=== PATIENT | female | born 1990 | race Caucasian/White ===

== ENCOUNTER 2024-07-25 09:08 | Outpatient (CLI) | payer MEDICAID, SELFPAY ==
--- NOTE | 2024-07-25 09:15 | CRLHL7_ITS ---
For Patients: As a result of the Cures Act, medical imaging exams and procedure reports are released immediately into your electronic medical record. You may view this report before your referring provider. If you have questions, please contact your health care provider. INDICATION: First trimester scan, establish dates. COMPARISON: None. TECHNIQUE: Real-time maurer-scale imaging of the pelvis was performed. FINDINGS: Sonographic imaging demonstrates a single living intrauterine gestation. The embryo demonstrates a regular cardiac rate measuring 165 beats per minute. The embryo`s crown-rump length measurement of 5.8 cm corresponds to a gestational age of 12 weeks 2 days with a sonographic due date of 02/04/2025. Yolk sac not visualized. There are no gross abnormalities noted within the embryo at this early state of development. The gestational sac has a normal appearance. There is no evidence of a perigestational hemorrhage. The amount of fluid within the sac appears appropriate for gestational age. The cervix is closed. The myometrium appears normal. Normal left ovary. Nonvisualization right ovary. There are no suspicious fluid collections noted in the cul-de-sac. IMPRESSION: Single living intrauterine with sonographic gestational age 12 weeks 2 days and sonographic due date of 02/04/2025. Dictated by Efe Inman MD @ 07/25/2024 10:53:54 AM (Electronically Signed)
== END 2024-07-25 09:09 | disposition home or self-care (01) ==
LOC: US 09:09
PROVIDERS: PCP Physician Assistant Medical; Visit Provider Physician Assistant
DX: Z34.91 Encounter for supervision of normal pregnancy, unspecified, first trimester (principal); Z3A.12 12 weeks gestation of pregnancy
CPT/HCPCS: 76817

== ENCOUNTER 2024-07-25 10:33 | Outpatient (CLI) | payer MEDICAID, SELFPAY ==
[2024-07-25 15:19] LABS: Chlamydia DNA Amplified* NOT DETECTED (No Detected); GC DNA Amplified* NOT DETECTED (No Detected)
[2024-07-26 22:06] LABS: HPV Source Cervix; HPV, High Risk by TMA Not Detected
== END 2024-07-25 10:34 | disposition home or self-care (01) ==
PROVIDERS: PCP Physician Assistant Medical; Visit Provider Physician Assistant
DX: Z34.91 Encounter for supervision of normal pregnancy, unspecified, first trimester (principal); Z12.4 Encounter for screening for malignant neoplasm of cervix; Z3A.12 12 weeks gestation of pregnancy
CPT/HCPCS: 80306; 82565; 82570; 83036; 84156; 84450; 84460; 84520; 85025; 86592; 86703; 86704; 86706; 86762; 86787; 86803; 86850; 86900; 86901; 87086; 87340; 87491; 87591; 87624; 87625; 88141; 88142

== ENCOUNTER 2024-07-28 09:06 | Outpatient (CLI) | payer MEDICAID, SELFPAY | END 2024-07-28 09:07 | disposition home or self-care (01) | LOC: NFLDREF 08-01 13:29 | PROVIDERS: PCP Physician Assistant Medical; Referring Provider Physician Assistant Medical; Visit Provider Physician Assistant | DX: R10.2 Pelvic and perineal pain (principal); M54.50 Low back pain, unspecified | CPT/HCPCS: 82570; 84156 ==

== ENCOUNTER 2024-09-20 10:56 | Outpatient (CLI) | payer MEDICAID, SELFPAY | END 2024-09-20 10:57 | disposition home or self-care (01) | PROVIDERS: PCP Physician Assistant Medical; Visit Provider Obstetrics & Gynecology | DX: O09.522 Supervision of elderly multigravida, second trimester (principal); Z3A.20 20 weeks gestation of pregnancy | CPT/HCPCS: 76811 ==

== ENCOUNTER 2024-12-06 09:17 | Outpatient (CLI) | payer MEDICAID, SELFPAY ==
--- NOTE | 2024-12-06 09:15 | CRLHL7_ITS ---
For Patients: As a result of the Century Cures Act, medical imaging exams and procedure reports are released immediately into your electronic medical record. You may view this report before your referring provider. If you have questions, please contact your health care provider. INDICATION: Evaluate growth, Maternal tobacco use COMPARISON: 09/20/2024 TECHNIQUE: Guo-scale and color Doppler of the gravid uterus and fetus from a transabdominal approach. FINDINGS: Provided gestational age: 31 weeks 3 days Single intrauterine gestation in a cephalic presentation. heart rate is 159 bpm. There is some assessment of the anatomy on this examination. Normally ossified nasal bone with normal profile view. Normal cavum septum pellucidum. Normal cerebral ventricles. The nose and upper lip are normal. Normal diaphragmatic contours without a hernia. Normal situs. Normal appearance of the four-chamber heart. Left and right ventricular outflow tracts are normal. Normal appearance of the aortic arch. Normal appearance of the pulmonary artery bifurcation and ductus arteriosus. There is an additional mildly prominent vessel along the left upper mediastinum. There is a three-vessel umbilical cord. No pleural effusion, pericardial effusion, ascites, or skin edema. Biparietal diameter: 7.8 cm Head circumference: 29 cm Abdominal circumference: 27.1 cm Femur length: 5.8 cm HC/AC: 1.10, normal for gestational age The composite ultrasound estimated gestational age is 31 weeks 4 days. The estimated weight is 1711 grams, or 3 pounds 12 ounces. This corresponds to the 30th percentile for gestational age. Amniotic fluid volume is normal. Single deepest vertical pocket is 5.6 cm The placenta is anterior. No previa. No periplacental hemorrhage. IMPRESSION: 1. Single intrauterine gestation without complication seen. 2. Growth is concordant with dates. Estimated weight is at the 30th percentile for gestational age. 3. Prominent vessel in the left upper chest without a major cardiovascular anomaly seen. May be a prominent pulmonary vein or left-sided SVC. Consider echocardiogram. Dictated by Dloly Andrade MD @ 12/07/2024 8:00:17 AM (Electronically Signed)
== END 2024-12-06 09:18 | disposition home or self-care (01) ==
LOC: US 09:18
PROVIDERS: PCP Physician Assistant Medical; Visit Provider Obstetrics & Gynecology
DX: O99.333 Smoking (tobacco) complicating pregnancy, third trimester (principal); Z72.0 Tobacco use; Z3A.31 31 weeks gestation of pregnancy
CPT/HCPCS: 76816; 82607; 86592

== ENCOUNTER 2024-12-06 10:52 | Outpatient (CLI) | payer MEDICAID, SELFPAY | END 2024-12-06 10:53 | disposition home or self-care (01) | PROVIDERS: PCP Physician Assistant Medical; Referring Provider Physician Assistant Medical; Visit Provider Obstetrics & Gynecology | DX: Z34.93 Encounter for supervision of normal pregnancy, unspecified, third trimester (principal); F10.11 Alcohol abuse, in remission; Z3A.31 31 weeks gestation of pregnancy | CPT/HCPCS: 82607; 86592 ==

== ENCOUNTER 2024-12-29 11:10 | Outpatient (CLI) | payer MEDICAID, SELFPAY ==
--- NOTE | 2024-12-29 11:15 | CRLHL7_ITS ---
For Patients: As a result of the Cures Act, medical imaging exams and procedure reports are released immediately into your electronic medical record. You may view this report before your referring provider. If you have questions, please contact your health care provider. OB ULTRASOUND FOLLOW-UP GROWTH JULIET by US: 02/04/2025. GA: 34 w, 5 d. Single. Comparison: 12/06/2024, 09/20/2024. INDICATION: Tobacco use. TECHNIQUE: Real time maurer scale imaging of the fetus was performed. Transabdominal. CERVIX: Not visualized. POSITIONING: Vertex. AMNIOTIC FLUID: 7.8 cm. SDP (N: greater than 2 x 1 cm) PLACENTA: Technique: Transabdominal. PLACENTA POSITION: Anterior. DOPPLER: heart rate: 130 bpm. BIOMETRY: BPD: 8.2 cm. 32 w, 6 d, 9 percent. HC: 31.2 cm. 35 w, 0 d, 22 percent. AC: 30.7 cm. 34 w, 5 d, 55 percent. FL: 6.1 cm. 31 w, 3 d, < 3 percent. FL/AC ratio: 19.69 percent. HC/AC ratio: 1.02. EFW: 2244 g. Weight: 4 lbs, 15 oz. age by this US: 33 w, 4 d. JULIET by this US: 02/12/2025. Percentile by JULIET: 19 percent. IMPRESSION: 1. Sonographic gestational age 33 weeks 4 days and sonographic due date 02/12/2025. Sonographic age is 8 days behind the clinical age. 2. Estimated weight 19th percentile. Abdominal circumference 55th percentile. Femur length less than 3rd percentile. Efe Inman M.D. Diagnostic Radiologist [email or web address] SP/Dictated by: Efe Inman MD @ 12/29/2024 5:39:00 PM (Electronically Signed)
== END 2024-12-29 11:11 | disposition home or self-care (01) ==
LOC: US 11:11
PROVIDERS: PCP Physician Assistant Medical; Visit Provider Obstetrics & Gynecology
DX: O36.5930 Maternal care for other known or suspected poor fetal growth, third trimester, not applicable or unspecified (principal); Z72.0 Tobacco use; Z3A.33 33 weeks gestation of pregnancy
CPT/HCPCS: 76816

== ENCOUNTER 2025-01-09 11:42 | Outpatient (CLI) | payer MEDICAID, SELFPAY ==
[2025-01-10 11:33] LABS: Strep B DNA Probe POSITIVE (Negative)
[2025-01-10 12:02] LABS: Strep B Susceptibility Needed? No
== END 2025-01-09 11:43 | disposition home or self-care (01) ==
PROVIDERS: PCP Physician Assistant Medical; Visit Provider Obstetrics & Gynecology
DX: Z34.83 Encounter for supervision of other normal pregnancy, third trimester (principal)
CPT/HCPCS: 87081; 87653

== ENCOUNTER 2025-02-06 07:29 | Inpatient (IN) | payer MEDICAID, SELFPAY ==
[2025-02-06] VITALS (63 sets, daily range): BP systolic 95–148; BP diastolic 53–90; PULSE 52–102; RESP 16–18; TEMP 36.3–37; O2SAT 92–100; BMI 25.5
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
[2025-02-06] MEDS: AMPICILLIN 2 GM in 0.9 % SODIUM CHLORIDE Mini-bag 100 ML IVPB (08:33)
[2025-02-06] MEDS: LACTATED RINGERS 1000 ML 1,000 ML 125 ML IV ×3 (08:33→18:10)
[2025-02-06] MEDS: OXYTOCIN 30 unit/500 ML in NS 30 UNIT/500 ML BAG IVPB (08:34)
[2025-02-06 09:14] LABS: Amphetamine Screen Urine Negative (Negative); Barbiturate Screen Urine Negative (Negative); Benzodiazepines Screen Urine Negative (Negative); Cannabinoid Screen Urine POSITIVE (Negative); Cocaine Screen Urine Negative (Negative); Methadone Screen Urine Negative (Negative); Methamphetamines Screen Urine Negative (Negative); Opiate Screen Urine Negative (Negative); Oxycodone Screen Urine Negative (Negative); Phencyclidine Screen Urine Negative (Negative); Tricyclic Antidepressant Urine Negative (Negative)
[2025-02-06 09:16] LABS: Basophils Percent Auto 0.2 % (0.0-3.0); Hematocrit 37.4 % (33.0-51.0); Hemoglobin* 12.5 gm/dL (12.0-16.0); Immature Granulocytes Pct Auto 0.6 %; Lymphocytes Percent Auto 14.7 % (20-44); Mean Corpuscular HGB Conc 33 gm/dL (32-36); Mean Corpuscular Hemoglobin 35 pg (26-34); Mean Corpuscular Volume 105 fL (80-100); Monocytes Percent Auto 6.7 % (0.0-11.0); Neutrophils Percent Auto 76.8 % (42.0-72.0); Platelet Count* 195 K/uL (140-440); RDW Coefficient of Variation % 12.8 % (11.5-15.5); Red Blood Count 3.55 m/uL (4.00-5.20); White Blood Count* 14.38 K/uL (4.50-11.00)
[2025-02-06 09:21] LABS: Total Protein Urine 13 mg/dL
[2025-02-06 09:21] LABS: Slide Review Reflex No
[2025-02-06 09:22] LABS: Creatinine Urine 36.9 mg/dL; Protein Creatinine Ratio Urine 0.35 (0-0.19)
[2025-02-06 09:22] LABS: Alanine Aminotransferase* 17 U/L (4-35); Aspartate Amino Transferase* 26 U/L (12-35); Blood Urea Nitrogen* 12 mg/dL (5-24); Creatinine* 0.6 mg/dL (0.5-1.5); Est. Creatinine Clearance* 136.77; Estimated Glomerular Filt Rate 120 ml/min
[2025-02-06] MEDS: AMPICILLIN 1 GM in 0.9 % SODIUM CHLORIDE Mini-bag 100 ML IVPB (13:44)
--- NOTE | 2025-02-06 13:50 | PM.OBPNL ---
Subjective Time Seen by Provider: 13:45 Date Seen: 02/06/25 Narrative: Romina is a 34-year-old G P 1 woman at 40 weeks, 2 days gestation here for elective induction of labor. This is a trial of labor after . Problem list also notable for: Smoker of 1/2 pack a day Possible aneurysm of the ductus arteriosus Marijuana use GBS positive Thus far, she has had Pitocin for induction of labor. She has had 1 dose of ampicillin greater than 4 hours ago. She is feeling strong contractions at this time. Pitocin is currently at 7 milliunits a minute. Objective Exam: General: Crying through contractions Sterile vaginal exam: 4 cm, 90%, 0 station. AROM for clear fluid. Vital Signs: Last Vital Signs Temp 97.8 F 02/06/25 11:52 Pulse 63 02/06/25 11:50 BP 127/86 02/06/25 11:50 Pulse Ox 98 02/06/25 07:59 Comments: tracing: Baseline 120, accelerations present, 1 variable deceleration, moderate variability. Contractions approximately every 2 minutes Contractions Pitocin Rate (mU/min): 7 Assessment Assessment: early labor Amniotic Membrane Status: AROM Status: Category ll (1 isolated variable deceleration) Tracing Comments: Category 2, overall reassuring GBS positive, has received a dose of IV ampicillin greater than 4 hours ago Labor Progress: Progress through early labor Marked increase in intensity of contractions Maternal Status: Preeclampsia without severe features by her admission blood pressure; 1 previously elevated blood pressure on 01/25/2025 Normal HELLP labs. Protein to creatinine ratio 0.35. All blood pressure since initial 1 have been normal. Plan Plan: Epidural as desired Continue pitocin for induction Continuous monitoring Continue ampicillin Q 4 h
[2025-02-06] MEDS: ROPIVACAINE 0.2% 100 ml 100 ML 12 MG EPIDURAL (14:14)
[2025-02-06] MEDS: BUPIVACAINE 0.25% PF 10 ML 10 ML ML EPIDURAL (14:14)
[2025-02-06] MEDS: PHENYLEPHRINE 100 MCG/ML SYRINGE IVP (14:26)
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
--- NOTE | 2025-02-06 14:42 | PM.OBPNL ---
Subjective Time Seen by Provider: 14:45 Date Seen: 02/06/25 Narrative: Romina is a 34-year-old G P 1 woman at 40 weeks, 2 days gestation here for elective induction of labor. This is a trial of labor after . Problem list also notable for: Smoker of 1/2 pack a day Possible aneurysm of the ductus arteriosus Marijuana use GBS positive Thus far, she has had Pitocin for induction of labor. She has had 1 dose of ampicillin greater than 4 hours ago. I was called to bedside with report of decelerations. She just received an epidural. She was given phenylephrine, but tracing did not respond despite mild hypertension. Pitocin was stopped. She was repositioned on her left and right sides with no impact. Objective Exam: Gen: on hands and knees in bed Vital Signs: Last Vital Signs Temp 97.8 F 02/06/25 11:52 Pulse 55 L 02/06/25 14:40 BP 119/58 L 02/06/25 14:40 Pulse Ox 98 02/06/25 14:41 Comments: Baseline prior to epidural was around 135. At 2:19 p.m., deceleration into the 80s was noted, slow return to baseline over a minute and a half. Recovery to 120, followed by another deceleration in to low of 80s lasting 3.5 minutes in total. Recovery for another minute, followed by another deceleration with chantel in the 80s lasting 4 minutes. Thereafter, recovery to 120 with moderate variability, followed by an increase in baseline to 135 at 2:40 p.m. Contractions Q 2 minutes. Contractions Pitocin Rate (mU/min): 0 Assessment Assessment: early labor Amniotic Membrane Status: AROM Status: Category ll (1 isolated variable deceleration) Tracing Comments: Category 2. Baseline now normalized after recurrent decelerations, but now with diminished variability. GBS positive, receiving IV ampicillin Labor Progress: Progress through early labor Maternal Status: Preeclampsia without severe features by her admission blood pressure; 1 previously elevated blood pressure on 01/25/2025 Normal HELLP labs. Protein to creatinine ratio 0.35. All blood pressure since initial 1 have been normal. Plan Plan: will begin to experiment with position changes again. Hold pitocin at this time. Continuous monitoring. Will monitor for return of moderate variability in next 20 minutes. Continue ampicillin Q 4 h
[2025-02-06] MEDS: CALCIUM CARBONATE 500 MG CHEW PO (16:25)
[2025-02-06] MEDS: TERBUTALINE 1 MG/ML INJ 0.25 MG SUBCUT (16:54)
[2025-02-06] MEDS: LACTATED RINGERS 1000 ML 1,000 ML 925 ML IV (17:00)
[2025-02-06] MEDS: AZITHROMYCIN 500 MG in 0.9 % SODIUM CHLORIDE 250 ml 250 ML 255 MG IVPB (17:11)
--- NOTE | 2025-02-06 17:14 | PM.OBPNL ---
Subjective Time Seen by Provider: 17:00 Date Seen: 02/06/25 Narrative: Romina is a 34-year-old G2 P 1 woman at 40 weeks, 2 days gestation here for elective induction of labor. This is a trial of labor after . Problem list also notable for: Smoker of 1/2 pack a day Possible aneurysm of the ductus arteriosus Marijuana use GBS positive Thus far, she has had Pitocin for induction of labor. She has had 2 doses of ampicillin. Throughout the afternoon, she has had intermittent but prolonged decelerations; one episode of this was described in my most recent note. Since 1500, while baseline has generally been 140 with moderate variability, there have been several current as of prolonged decelerations with return to baseline thereafter. These have generally occurred without the use of Pitocin. The last time Pitocin was attempted, this was followed by of prolonged deceleration. At the writing this note, baseline is now 155-160 and moderate variability is again noted. Patient was given terbutaline given nonreassuring status. At this moment, given the recurrence of decelerations, I have recommended repeat delivery for nonreassuring status in the setting TOLAC. Patient understands the recommendation and agrees with the plan. We discussed risks of procedure, including bleeding/hemorrhage, infection, damage to internal organs, scarring, risk of thromboembolism. Consent form was reviewed with and signed by patient. Is of mycin and cefazolin for preoperative prophylaxis. Objective Exam: Gen: Lying in bed Vital Signs: Last Vital Signs Temp 98.6 F 02/06/25 16:53 Pulse 86 02/06/25 17:07 BP 95/53 L 02/06/25 17:07 Pulse Ox 100 02/06/25 17:11 Contractions Pitocin Rate (mU/min): 0 Assessment Assessment: early labor Amniotic Membrane Status: AROM Status: Category ll (1 isolated variable deceleration) Tracing Comments: Category 2. Nonreassuring. GBS positive, receiving IV ampicillin Labor Progress: Early labor Maternal Status: Preeclampsia without severe features by her admission blood pressure; 1 previously elevated blood pressure on 01/25/2025 Normal HELLP labs. Protein to creatinine ratio 0.35. All blood pressure since initial 1 have been normal. Plan Plan: delivery, as described above
[2025-02-06] MEDS: CEFAZOLIN 1 GM inj 2 GM IVP (17:30)
[2025-02-06] MEDS: KETOROLAC 30 MG/ML inj IVP (18:16)
--- NOTE | 2025-02-06 18:29 | P.OBPRC_ITS ---
Procedure Date of procedure: 02/06/25 Pre-op diagnosis: 40 2/7 weeks' gestation Previous section Nonreassuring status Post-op diagnosis: same Procedure Done: Global Will [facility] bill your pro fee for this procedure?: Yes Blood Loss Measurement Type: QBL (529) Bakri Used: No IV fluids (mL): 1,000 Urine Output (mL): 20 Surgeon: Elda Quiroz MD Anesthesia Type: Epidural Findings: 1. Male infant, cephalic 0 P presentation, Apgars of 4, 8, and 9, weight pending at the time of this dictation. 2. Scarring of the subcutaneous tissue and along the bladder reflection to the uterus. Otherwise normal appearance of bilateral tubes and ovaries. Procedure Name: Repeat low-transverse delivery Procedure Description: Patient was taken to the operating room with IV running. She received azithromycin and cefazolin in preoperative prophylaxis. Epidural anesthesia had previously been administered. Abrams catheter was inserted. She was prepped and draped in the usual sterile fashion. Anesthesia was tested and found to be adequate. A low-transverse skin incision was made with a scalpel and carried through to the underlying layer of fascia with the scalpel. The subcutaneous fat was dissected off the underlying fascia with Bovie. The fascia was nicked in the midline with a scalpel, and this incision was extended laterally with scissors. The fascia was dissected off the underlying rectus muscles sharply. The rectus muscles were in the midline. Peritoneum was identified and entered bluntly. Bovie was used to widen this opening laterally. Prosper O retractor was inserted and tightened down, providing excellent visualization of the lower uterine segment. The bladder reflection was found to be advanced along the lower uterine segment. A bladder flap was created with a combination of sharp and blunt dissection. Low-transverse uterine incision was made with a scalpel. Incision was widened bluntly. The 's head was grasped through the hysterotomy and delivered with the help of fundal pressure. The remainder of the body delivered without incident. Cord was immediately clamped and cut after 30 seconds. was handed off to attending nurses. The placenta was delivered with gentle traction on the cord. The uterus was cleaned of all clots and debris with the dry lap pad. The hysterotomy was reapproximated with 0 Vicryl in a running, locked fashion. Second layer of the same suture was used in imbricating fashion in the midportion to obtain hemostasis. The adnexa were examined and noted to be normal in appearance. The cul-de-sac and gutters were cleansed with dampened laparotomy sponge, removing any further clots and debris. The Prosper O retractor was removed. The hysterotomy was reexamined and found to be hemostatic. The peritoneum was reapproximated with 2 0 Vicryl in a running fashion. The rectus muscles were examined and found to be hemostatic. The fascia was reapproximated with 0 Vicryl in a running fashion. Subcutaneous fat was irrigated and Bovie used on oozing vessels. The subcutaneous fat was reapproximated with 2 0 plain gut suture in an interrupted fashion. The skin was closed with a subcuticular stitch of 4-0 Monocryl. Surgical glue was applied above this. Patient tolerated procedure well was taken to recovery area in stable condition. Complications: None Pathology: specimen obtained, sent to pathology (Placenta) Surgery Debrief Performed: Yes Surgery Debrief Comment: Postoperative debrief was verbalized with OR staff, including a verification of pathology specimens to be sent as described above. Condition: stable Disposition: floor
--- NOTE | 2025-02-06 18:56 | P.ANES_ITS ---
Anesthesia Charges Start Date/Time Anesthesia Start Date: 02/06/25 Anesthesia Start Time: 17:22 Stop Date/Time Anesthesia Stop Date: 02/06/25 Anesthesia Stop Time: 18:37 Summary Emergency: LEAD NUCLEAR MEDICINE TECHNOLOGIST Coding CPT Codes CPT Codes: ANES/ANALG CS DELIVER ADD-ON - 98402 ([id number]) P2 - PATIENT W/MILD SYST DISEASE, QZ - LEAD NUCLEAR MEDICINE TECHNOLOGIST SVC W/O DRAWING KILN OPERATOR BY Additional Codes: Summary - Emergency: LEAD NUCLEAR MEDICINE TECHNOLOGIST ([id number])
--- NOTE | 2025-02-06 18:56 | W.ANESCHARGE ---
Anesthesia Charges Start Date/Time Anesthesia Start Date: 02/06/25 Anesthesia Start Time: 17:22 Stop Date/Time Anesthesia Stop Date: 02/06/25 Anesthesia Stop Time: 18:37 Summary Emergency: TRUSS BUILDER Coding CPT Codes CPT Codes: ANES/ANALG CS DELIVER ADD-ON - 03413 ([id number]) P2 - PATIENT W/MILD SYST DISEASE, QZ - TRUSS BUILDER SVC W/O GRILL ATTENDANT BY Additional Codes: Summary - Emergency: TRUSS BUILDER ([id number])
--- NOTE | 2025-02-06 18:57 | P.NB_ITS ---
Nerve Block Nerve Block Time Seen by Provider: 18:30 Date Seen: 02/06/25 Type of block requested by surgeon for post-operative analgesia: TAP Side: bilateral Time out performed: Yes Verification of patient name: Yes Verification of date of : Yes Site marking: site marked Name of person performing procedure: Varghese Chapa Continuous monitoring Was continuous monitoring of O2 sat, B/P, quality assurance monitor body, recorded every 15 minutes?: Yes Procedure Checklist: sterile prep, needles and gloves Ultrasound guided. Images saved: Yes Medications given in 5ml increments after negative aspiration: Marcaine %: 0.25 mL: 30 Needle gauge: 20 and Exparel mL: 10 Needle gauge: 20 Patient tolerated procedure well: Yes Additional comments: Injected in 5ml increments after negative aspiration Block Charges Block Charge (with Pro Fee): TAP Bilateral Use of Ultrasound Machine for Block: Yes- US Guidance/pain block
[2025-02-06] MEDS: ACETAMINOPHEN 500 MG TABLET 1000 MG PO (20:16)
[2025-02-06] MEDS: OXYCODONE 5 MG TABLET PO (21:09)
[2025-02-06 22:37] LABS: Hemoglobin* 11.8 gm/dL (12.0-16.0)
[2025-02-07] VITALS (10 sets, daily range): BP systolic 120–147; BP diastolic 71–83; PULSE 58–78; RESP 16–18; TEMP 36.8–37.3; O2SAT 96–98
[2025-02-07 00:01] LABS: Hematocrit 33.3 % (33.0-51.0); Hemoglobin* 11.5 gm/dL (12.0-16.0); Immature Granulocytes Pct Auto 1.8 %; Lymphocytes Percent Auto 4.5 % (20-44); Mean Corpuscular HGB Conc 35 gm/dL (32-36); Mean Corpuscular Hemoglobin 36 pg (26-34); Mean Corpuscular Volume 103 fL (80-100); Monocytes Percent Auto 4.1 % (0.0-11.0); Neutrophils Percent Auto 89.6 % (42.0-72.0); Platelet Count* 173 K/uL (140-440); RDW Coefficient of Variation % 12.8 % (11.5-15.5); Red Blood Count 3.23 m/uL (4.00-5.20)
[2025-02-07 00:03] LABS: White Blood Count* 26.03 K/uL (4.50-11.00)
[2025-02-07 00:04] LABS: Slide Review Reflex No
[2025-02-07] MEDS: KETOROLAC 30 MG/ML inj IVP ×4 (00:30→23:26)
[2025-02-07] MEDS: MORPHINE 2 MG/ML inj IVP (01:24)
[2025-02-07] MEDS: NIFEdipine ER 30 MG TAB PO (04:55)
[2025-02-07 05:21] LABS: Hematocrit 31.7 % (33.0-51.0); Hemoglobin* 10.8 gm/dL (12.0-16.0); Immature Granulocytes Pct Auto 0.3 %; Lymphocytes Percent Auto 8.2 % (20-44); Mean Corpuscular HGB Conc 34 gm/dL (32-36); Mean Corpuscular Hemoglobin 35 pg (26-34); Mean Corpuscular Volume 104 fL (80-100); Monocytes Percent Auto 4.8 % (0.0-11.0); Neutrophils Percent Auto 86.7 % (42.0-72.0); Platelet Count* 177 K/uL (140-440); RDW Coefficient of Variation % 12.9 % (11.5-15.5); Red Blood Count 3.06 m/uL (4.00-5.20); White Blood Count* 24.24 K/uL (4.50-11.00)
[2025-02-07 05:23] LABS: Slide Review Reflex No
--- NOTE | 2025-02-07 05:27 | P.NB_ITS ---
Nerve Block Nerve Block Time Seen by Provider: 05:00 Date Seen: 02/07/25 Type of block requested by surgeon for post-operative analgesia: TAP Side: bilateral Time out performed: Yes Verification of patient name: Yes Verification of date of : Yes Site marking: site marked Name of person performing procedure: Varghese Chapa Continuous monitoring Was continuous monitoring of O2 sat, B/P, white sugar pan tank operator, recorded every 15 minutes?: Yes Procedure Checklist: sterile prep, needles and gloves Ultrasound guided. Images saved: Yes Medications given in 5ml increments after negative aspiration: Marcaine %: 0.25 mL: 30 Needle gauge: 20 Patient tolerated procedure well: Yes Additional comments: Injected in 5ml increments after negative aspiration Block Charges Block Charge (with Pro Fee): TAP Bilateral Use of Ultrasound Machine for Block: Yes- US Guidance/pain block
[2025-02-07 05:40] LABS: Alanine Aminotransferase* 20 U/L (4-35); Aspartate Amino Transferase* 38 U/L (12-35); Blood Urea Nitrogen* 14 mg/dL (5-24); Creatinine* 0.8 mg/dL (0.5-1.5); Est. Creatinine Clearance* 102.58; Estimated Glomerular Filt Rate 98 ml/min
--- NOTE | 2025-02-07 06:06 | PC.NURSE ---
Addendum entered by Thomas Sutton RN 02/07/25 06:22: Patient confirmed passing gas. Hypoactive bowel sound in all 4 quadrants. Dressing intact, clean and dry. No incisional bleeding or per vagina noted. Original Note: Shift note: Patient has been in bed throughout the shift. Attempt to he help patient ambulate was refused by patient. She preferred to sleep through the night and start ambulating in the morning. Pain has been rated at 8 even after Morphine and Ketorolac IV. At 0400, Bp elevated to 141/72. Charge nurse informed and MD ordered Nifedipine 30mg. Patient tolerated medication well. Anesthetic block was given at 0520 by the minister of religion for pain management. Patient appeared to respond well to the anesthetic block. Bp rechecked after the medication recorded at 120/82. has been with patient throughout the night. Baby doing well. breast feed 2-3 hourly.
--- NOTE | 2025-02-07 07:33 | PM.OBPNVD1 ---
OB - PN:Subj Subjective Date Seen: 02/07/25 Narrative: Romina is a 34 y.o. G 4 P 2 who was admitted to L & D for an elective IOL with plan to TOLAC. ?She had a repeat section for non-reassuring that was uncomplicated. The patient feels well. ?The pain is well controlled with current medications. ?She has no new complaints. ?She is breast feeding and reports things are going well. the patient has done well.? Vitals have been stable.? She has remained afebrile.? Has a good appetite, is tolerating a general diet. ?She is voiding without difficulty.? She is passing gas and has not had a bowel movement.? She is ambulating and denies any dizziness.? Has small amount of rubra lochia. Problems: no OB - PN: Obj Exam Physical Exam: Vital signs: Temp Pulse Resp BP Pulse Ox O2 Del Method 98.2 F 64 18 120/72 97 Room Air 02/07/25 05:04 02/07/25 05:04 02/07/25 05:04 02/07/25 05:04 02/07/25 05:04 02/07/25 05:04 Narrative: GENERAL APPEARANCE:? normal affect, alert, no distress MOOD:? appropriate CHEST:? clear to auscultation HEART:? regular rate and rhythm ABDOMEN:? soft, non-tender the uterine fundus is At Umbilicus, Midline and is appropriate for the stage of recovery. EXTREMITIES:? normal and no edema INCISION: Dressing in place; clean, dry, and intact OB - PN: Obj Data Labs Labs: Laboratory Results - last 24 hr 02/06/25 02/06/25 02/06/25 08:10 08:50 08:51 WBC 14.38 H RBC 3.55 L Hgb 12.5 Hct 37.4 MCV 105 H MCH 35 H MCHC 33 RDW Coeff of Marshal 12.8 Plt Count 195 Neut % (Auto) 76.8 H Lymph % (Auto) 14.7 L [place] % (Auto) 6.7 Eos % (Auto) 1.0 Baso % (Auto) 0.2 Neut # (Auto) 11.00 H Lymph # (Auto) 2.10 [place] # (Auto) 1.00 H Eos # (Auto) 0.10 Baso # (Auto) 0.00 Abs Immat Gran (auto) 0.10 Imm/Tot Granulo (auto) 0.6 BUN 12 Creatinine 0.6 Estimated Creat Clear 136.77 Estimated GFR 120 AST 26 ALT 17 Urine Creatinine 36.9 Protein/Creatinin Ratio 0.35 H Urine Total Protein 13 Umb Cord Noroxymorphone Umb Cord Butalbital Urine Opiates Screen Umb Cord Meperidine Umbilical Cord Codeine Umb Cord Dihydrocodeine Umb Cd Buprenorphine Umb Norbuprenorphine Umb Cord Morphine Umb 6-Acetylmorphine Umb Cord Hydrocodone Umb Cord Norhydrocodone Umb Cord Oxycodone Ur Oxycodone Screen Umb Cord Noroxycodone Umb Cord Oxymorphone Umb Cord Methadones Umb Cord Methadone Metab Urine Methadone Screen Umb Cord Hydromorphone Umbilical Cord Naloxone Umb Cord Fentanyl Umb Cord Tapentadol Umbilical Cord Tramadol Umb E-egqgxvacr-Miqtdgus Umb Q-isoerlp-Hpcxlc Ql Umb Cord Propoxyphene Ur Barbiturates Screen Umb Crd Gabapentin U Tricyclic Antidepress Umb Cord Phencyclidine Ur Phencyclidine Scrn Umb Cord Amphetamines Ur Amphetamines Screen Umb Cd Methamphetamine U Methamphetamines Scrn Umbilical Cord MDMA Umb Cord Phentermine Umb Cd Phenobarbital Umb Cord Alprazolam Umb Cd q-XY-Pxytkptxju U Benzodiazepines Scrn Umb Cord Clonazepam Umb Cd 9-Khwgb-Pyodtryeqc Umb Cord Diazepam Umb Cord Nordiazepam Umb Cord Lorazepam Umb Cord Oxazepam Umb Cord Temazepam Umb Cord p-NV-Jgqvpzdib Umb Cord Midazolam Umb Cord Zolpidem Umbilical Cord Cocaine Umb Cord Cocaethylene Urine Cocaine Screen Umb Crd Benzoylecgonine Cd m-[place]-Zkvwfalxccre Ql Umb Carboxy-THC Ql GCMS U Marijuana (THC) Screen Umbil Cord Drug Screen Umb Drug Scrn Qual EER Ur Drug Screen Comment Blood Type O Positive Antibody Screen NEGATIVE 02/06/25 02/06/25 02/06/25 08:52 17:50 22:05 WBC RBC Hgb 11.8 L Hct MCV MCH MCHC RDW Coeff of Marshal Plt Count Neut % (Auto) Lymph % (Auto) [place] % (Auto) Eos % (Auto) Baso % (Auto) Neut # (Auto) Lymph # (Auto) [place] # (Auto) Eos # (Auto) Baso # (Auto) Abs Immat Gran (auto) Imm/Tot Granulo (auto) BUN Creatinine Estimated Creat Clear Estimated GFR AST ALT Urine Creatinine Protein/Creatinin Ratio Urine Total Protein Umb Cord Noroxymorphone Cancelled Umb Cord Butalbital Cancelled Urine Opiates Screen Negative Umb Cord Meperidine Cancelled Umbilical Cord Codeine Cancelled Umb Cord Dihydrocodeine Cancelled Umb Cd Buprenorphine Cancelled Umb Norbuprenorphine Cancelled Umb Cord Morphine Cancelled Umb 6-Acetylmorphine Cancelled Umb Cord Hydrocodone Cancelled Umb Cord Norhydrocodone Cancelled Umb Cord Oxycodone Cancelled Ur Oxycodone Screen Negative Umb Cord Noroxycodone Cancelled Umb Cord Oxymorphone Cancelled Umb Cord Methadones Cancelled Umb Cord Methadone Metab Cancelled Urine Methadone Screen Negative Umb Cord Hydromorphone Cancelled Umbilical Cord Naloxone Cancelled Umb Cord Fentanyl Cancelled Umb Cord Tapentadol Cancelled Umbilical Cord Tramadol Cancelled Umb M-lphxthexu-Vnuojbpy Cancelled Umb N-vkoarij-Jatabi Ql Cancelled Umb Cord Propoxyphene Cancelled Ur Barbiturates Screen Negative Umb Crd Gabapentin Cancelled U Tricyclic Antidepress Negative Umb Cord Phencyclidine Cancelled Ur Phencyclidine Scrn Negative Umb Cord Amphetamines Cancelled Ur Amphetamines Screen Negative Umb Cd Methamphetamine Cancelled U Methamphetamines Scrn Negative Umbilical Cord MDMA Cancelled Umb Cord Phentermine Cancelled Umb Cd Phenobarbital Cancelled Umb Cord Alprazolam Cancelled Umb Cd l-IA-Wdokhqfpim Cancelled U Benzodiazepines Scrn Negative Umb Cord Clonazepam Cancelled Umb Cd 6-Vreed-Tnjvxjdhkz Cancelled Umb Cord Diazepam Cancelled Umb Cord Nordiazepam Cancelled Umb Cord Lorazepam Cancelled Umb Cord Oxazepam Cancelled Umb Cord Temazepam Cancelled Umb Cord c-YY-Hsgdgvgwv Cancelled Umb Cord Midazolam Cancelled Umb Cord Zolpidem Cancelled Umbilical Cord Cocaine Cancelled Umb Cord Cocaethylene Cancelled Urine Cocaine Screen Negative Umb Crd Benzoylecgonine Cancelled Cd a-LO-Lshojbhebnou Ql Cancelled Umb Carboxy-THC Ql GCMS Cancelled U Marijuana (THC) Screen POSITIVE A Umbil Cord Drug Screen Cancelled Umb Drug Scrn Qual EER Cancelled Ur Drug Screen Comment See Note Blood Type Antibody Screen 02/06/25 02/07/25 23:55 05:15 WBC 26.03 H* 24.24 H RBC 3.23 L 3.06 L Hgb 11.5 L 10.8 L Hct 33.3 31.7 L MCV 103 H 104 H MCH 36 H 35 H MCHC 35 34 RDW Coeff of Marshal 12.8 12.9 Plt Count 173 177 Neut % (Auto) 89.6 H 86.7 H Lymph % (Auto) 4.5 L 8.2 L [place] % (Auto) 4.1 4.8 Eos % (Auto) 0.0 0.0 Baso % (Auto) 0.0 0.0 Neut # (Auto) 23.30 H 21.00 H Lymph # (Auto) 1.20 2.00 [place] # (Auto) 1.10 H 1.20 H Eos # (Auto) 0.00 0.00 Baso # (Auto) 0.00 0.00 Abs Immat Gran (auto) 0.50 H 0.10 Imm/Tot Granulo (auto) 1.8 0.3 BUN 14 Creatinine 0.8 Estimated Creat Clear 102.58 Estimated GFR 98 AST 38 H ALT 20 Urine Creatinine Protein/Creatinin Ratio Urine Total Protein Umb Cord Noroxymorphone Umb Cord Butalbital Urine Opiates Screen Umb Cord Meperidine Umbilical Cord Codeine Umb Cord Dihydrocodeine Umb Cd Buprenorphine Umb Norbuprenorphine Umb Cord Morphine Umb 6-Acetylmorphine Umb Cord Hydrocodone Umb Cord Norhydrocodone Umb Cord Oxycodone Ur Oxycodone Screen Umb Cord Noroxycodone Umb Cord Oxymorphone Umb Cord Methadones Umb Cord Methadone Metab Urine Methadone Screen Umb Cord Hydromorphone Umbilical Cord Naloxone Umb Cord Fentanyl Umb Cord Tapentadol Umbilical Cord Tramadol Umb F-pknnevxgg-Xhcgppqw Umb M-sncczxs-Sckngt Ql Umb Cord Propoxyphene Ur Barbiturates Screen Umb Crd Gabapentin U Tricyclic Antidepress Umb Cord Phencyclidine Ur Phencyclidine Scrn Umb Cord Amphetamines Ur Amphetamines Screen Umb Cd Methamphetamine U Methamphetamines Scrn Umbilical Cord MDMA Umb Cord Phentermine Umb Cd Phenobarbital Umb Cord Alprazolam Umb Cd c-PG-Qbvibrdwtw U Benzodiazepines Scrn Umb Cord Clonazepam Umb Cd 2-Mucmh-Byzbuvdbil Umb Cord Diazepam Umb Cord Nordiazepam Umb Cord Lorazepam Umb Cord Oxazepam Umb Cord Temazepam Umb Cord h-KX-Uohmdbztn Umb Cord Midazolam Umb Cord Zolpidem Umbilical Cord Cocaine Umb Cord Cocaethylene Urine Cocaine Screen Umb Crd Benzoylecgonine Cd u-OY-Dirlnllovohy Ql Umb Carboxy-THC Ql GCMS U Marijuana (THC) Screen Umbil Cord Drug Screen Umb Drug Scrn Qual EER Ur Drug Screen Comment Blood Type Antibody Screen OB - PN: A/P Delivery Assessment and Plan (1) care and examination immediately after delivery: Status: Acute (2) Tobacco use: Status: Acute (3) Marijuana use: Status: Acute (4) Status post section: Status: Acute (5) Failed attempted vaginal after previous delivery: Status: Acute (6) Lactating mother: Status: Acute Plan day: 1 Plan: routine care Comments: Routine post-op care , may see if needed? Hgb 10.8. ? Pre-E diagnosed by elevated BP greater than 4 hours apart? Labs WNL Oral nifedipine started early this morning, continue to monitor BP? Continue to optimize pain control today
[2025-02-07] MEDS: DOCUSATE SODIUM 100 MG CAPSULE PO (08:28)
[2025-02-07] MEDS: NICOTINE 14 mg PATCH 1 PATCH TRANSDERMA (10:08)
[2025-02-07] MEDS: IBUPROFEN 600 MG TABLET PO (11:15)
[2025-02-07 14:08] LABS: Rapid Plasma Reagin (RPR) Non Reactive (Non Reactive)
[2025-02-07] MEDS: OXYCODONE 5 MG TABLET PO (15:01)
--- NOTE | 2025-02-07 15:49 | PC.SOCIAL ---
Discharge Planning: SW met with patient to see if there are any supports/resources that patient would like assistance with. Patient states that she is doing well and has all of her needs met at this time. SW discussed that a CPS report needed to be made due to THC use during . Patient states she was aware that this would need to be done and was expecting it. Patient had no questions regarding this and no other questions. SW explained that we are available if any questions arise.
[2025-02-07] MEDS: SIMETHICONE 80 MG TAB.CHEW PO (17:53)
[2025-02-07] MEDS: ACETAMINOPHEN 500 MG TABLET 1000 MG PO (20:45)
[2025-02-08] MEDS: ACETAMINOPHEN 500 MG TABLET 1000 MG PO ×2 (02:45→08:57)
[2025-02-08] MEDS: KETOROLAC 30 MG/ML inj IVP (05:28)
[2025-02-08 05:35] VITALS: BP 134/81; PULSE 63; RESP 16; TEMP 36.9; O2SAT 97
[2025-02-08] MEDS: DOCUSATE SODIUM 100 MG CAPSULE PO (08:57)
[2025-02-08] MEDS: NIFEdipine ER 30 MG TAB PO (08:57)
[2025-02-08 09:05] VITALS: BP 115/78; PULSE 70; RESP 16; TEMP 36.8; O2SAT 99
--- NOTE | 2025-02-08 09:30 | PM.OBDSVD1 ---
DS: Providers Provider Date Seen: 02/08/25 Date of admission: 02/06/25 07:29 Primary care physician: Jo-Ann Morfin PA-C Admitting Clinician: Elda Quiroz MD Consults: 02/06/25 08:22 Consult to Machine Operator Hop Picker [CONS] Routine Comment: Reason for Consult:: Social Service Consult Attending Physician on discharge: Radha Kilgore CNM DS: Diagnosis Discharge Diagnosis (1) care and examination immediately after delivery: Status: Acute (2) Lactating mother: Status: Acute (3) Preeclampsia: Status: Acute Problem details: Without severe features (4) Status post section: Status: Acute Exam Narrative: Exam Narrative: VSS. ?Afebrile GENERAL APPEARANCE: ?normal affect, alert, no distress MOOD: ?appropriate HEENT: normocephalic, neck supple, full ROM CHEST: ?Symmetrical chest wall movement. ?Normal respiratory effort. ?Clear to auscultation HEART: ?regular rate and rhythm ABDOMEN: ?soft, non-tender. Uterine fundus is firm, at Umbilicus, Midline and is appropriate for the stage of recovery. ?Bowel sounds present. EXTREMITIES: ?normal and no edema SKIN: warm, dry. ? ?Incision clean/dry/well approximated. ?No signs of infection noted. Const: Vital Signs, click to edit/add: Vital Signs - 24 hr 02/07/25 12:41 02/07/25 12:51 02/07/25 18:14 Temperature 98.5 F 98.5 F 98.3 F Pulse Rate [Right Pulse Oximeter] 78 78 67 Respiratory Rate 18 18 16 Blood Pressure [Ri ght Arm] 134/78 134/78 135/77 Pulse Oximetry 96 Oxygen Delivery Me thod Room Air Room Air Room Air 02/07/25 20:35 02/07/25 20:50 02/07/25 23:35 Temperature 99.1 F 99.2 F Pulse Rate [Right Pulse Oximeter] 65 64 Respiratory Rate 16 16 Blood Pressure [Ri ght Arm] 147/83 H 129/76 134/81 Pulse Oximetry 98 98 Oxygen Delivery Me thod Room Air Room Air 02/08/25 05:35 02/08/25 09:05 Temperature 98.5 F 98.3 F Pulse Rate [Right Pulse Oximeter] 63 70 Respiratory Rate 16 16 Blood Pressure [Ri ght Arm] 134/81 115/78 Pulse Oximetry 97 99 Oxygen Delivery Me thod Room Air Room Air Documenting provider has reviewed patient's vital signs: yes OB - DS: Summary Hospital Course Hospital Course: Romina is a 34 y.o. who was admitted to L & D for pepeat C/S. ?She had an uncomplicated .?The patient feels well. ?The pain is well controlled with current medications. ?She has no new complaints. ?She is breast feeding and reports things are going well.? the patient has done well.? Vitals have been stable has been started on Nifedipine and will go home on this.? She has remained afebrile.? Has a good appetite, is tolerating a general diet. ?She is voiding without difficulty.? She is passing gas and has not had a bowel movement.? She is ambulating and denies any dizziness.? Has Small amount of rubra lochia. ?She is undecided on her plan for prevention. Peripartum Data delivery method: Repeat Section Procedures: Procedures Operation Date: 02/06/25 17:00 Actual Procedure Side Surgeon p Repeat Section Not Applicable Elda Quiroz MD complications: none [place] Infant Gender: Male Infant Discharge Plan: Home Status at Discharge Functional status at discharge: independent ambulation Overall status at discharge: patient is progressing back to baseline Time Spent with Patient Time attestation: Total time spent providing and/or coordinating discharge services: Time spent: Less than 30 minutes Discharge Plan Discharge Disposition: Home, Self-Care Date of Admission: 02/06/25 07:29 Attending Provider on Discharge: Radha Kilgore Primary Care Provider: Jo-Ann Morfin Condition: Stable Anticipated Discharge Date/Time: 02/08/25 12:00 Discharge Medications: New nifedipine 30 mg Tablet Extended Release 30 mg PO DAILY Qty: 30 1RF acetaminophen 500 mg Tablet 1,000 mg PO Q6H PRN (Reason: Pain) Qty: 0 0RF docusate sodium 100 mg Capsule 100 mg PO DAILY Qty: 60 1RF ibuprofen 600 mg Tablet 600 mg PO Q6H PRN (Reason: Pain) Qty: 90 0RF oxycodone 5 mg Tablet 5 - 10 mg PO Q4H PRN (Reason: Pain) Qty: 10 0RF Continued TUF-ntfw-XS-omega 3-fat com #1 27-1-300 mg capsule 1 cap PO DAILY famotidine [Pepcid] 20 mg tablet 20 mg PO BID cetirizine [Zyrtec] 10 mg tablet 20 mg PO DAILY PRN Discontinued aspirin [Adult Low Dose Aspirin] 81 mg tablet,delayed release (DR/EC) 81 mg PO DAILY Discharge Orders: Discharge Order (Routine); Ordered 02/08/25 Ordered By: Radha Kilgore Patient Education: OB Over the Counter Medication Information, OB /Breast Feeding Additional Instructions: Discharge instructions were reviewed with the patient including signs and symptoms of infection and home going medications Lifting Restrictions: 20 pounds for 6 weeks No not submerge incision under water X 2 weeks? Nothing vaginally for 6 weeks: no tampons or intercourse Do not drive while taking narcotic pain medication(s) Off Work or School for 6 weeks [facility] for [facility] BP [facility]?02/12/25 Call with BP greater than or equal to 140/90 2-week visit: incision check, discuss infant feeding concerns, review control options and screen for anxiety/depression. 6-week visit for an annual exam. consultation services are available to all mothers and babies for the first year after delivery.? To make an appointment, please call [phone]. Activity Level: Activity as Tolerated Discharge Diet: Regular Follow Up Appointments[facility] [Provider Group] Forms: Appiterateth Info Instructions
[2025-02-08] MEDS: IBUPROFEN 600 MG TABLET PO (11:50)
[2025-02-08 13:02] VITALS: BP 121/73; PULSE 66; RESP 16; TEMP 36.9; O2SAT 100
[2025-02-08] MEDS: SIMETHICONE 80 MG TAB.CHEW PO (13:10)
== END 2025-02-08 15:00 | disposition home or self-care (01) | DRG 787 ==
PROVIDERS: Admitting Provider Obstetrics & Gynecology; PCP Physician Assistant Medical; Visit Provider Obstetrics & Gynecology
PROC: 10D00Z1 Extraction of Products of Conception, Low, Open Approach (ICD-10-PCS; CPT 59514; principal; 2025-02-06 17:00)
DX: O34.211 Maternal care for low transverse scar from previous cesarean delivery (principal); O99.324 Drug use complicating childbirth; O66.41 Failed attempted vaginal birth after previous cesarean delivery; F12.90 Cannabis use, unspecified, uncomplicated; O76 Abnormality in fetal heart rate and rhythm complicating labor and delivery; O14.04 Mild to moderate pre-eclampsia, complicating childbirth; O99.824 Streptococcus B carrier state complicating childbirth; G89.18 Other acute postprocedural pain; O99.334 Smoking (tobacco) complicating childbirth; F17.210 Nicotine dependence, cigarettes, uncomplicated; O35.BXX0 Maternal care for other (suspected) fetal abnormality and damage, fetal cardiac anomalies, not applicable or unspecified; O99.344 Other mental disorders complicating childbirth; F41.9 Anxiety disorder, unspecified; F32.A Depression, unspecified; F90.9 Attention-deficit hyperactivity disorder, unspecified type; F10.11 Alcohol abuse, in remission; F14.11 Cocaine abuse, in remission; Z79.82 Long term (current) use of aspirin; Z3A.40 40 weeks gestation of pregnancy; Z37.0 Single live birth
CPT/HCPCS: 01967; 01968; 36415; 64488; 76942; 80306; 80323; 80326; 80347; 80349; 80355; 80364; 82565; 82570; 84156; 84450; 84460; 84520; 85018; 85025; 85027; 86592; 86850; 86900; 86901; 88307; 88341; 88342; 99140; A4314; A9270; J0290; J0456; J0665; J0666; J0690; J1100; J1885; J2270; J2371; J2405; J2590; J2795; J3010; J3105; J7050; J7120; S4990